=== PATIENT | male | born 2000 | race Caucasian/White ===

== ENCOUNTER 2021-05-29 14:06 | Emergency (ER) | payer BC ==
[2021-05-29 15:37] VITALS: BP 137/77; PULSE 86; RESP 18; TEMP 99.1
[2021-05-29] MEDS ORDERED: DIPH,PERTUS(ACELL)TETVAC-LF 0.5 ML VIAL IM ONE (16:19)
[2021-05-29] MEDS ORDERED: PROPARACAINE 0.5% OPHTH DROPS 15 ML BTL RIGHT EYE STA (16:19)
[2021-05-29] MEDS ORDERED: PROPARACAINE 0.5% OPHTH DROPS 15 ML BTL LEFT EYE STA (16:19)
[2021-05-29] MEDS ORDERED: FLUORESCEIN STRIPS 1 MG STRIP BOTH EYES ONE (16:19)
--- NOTE | 2021-05-29 16:23 | ED ---
General Adult HPI - General Chief complaint: Eye Problems Stated complaint: Foreign object in eyes Time Seen by Provider: 05/29/21 16:14 Source: patient, RN notes reviewed Mode of arrival: ambulatory Limitations: no limitations - History of Present Illness Initial comments: This is a well-appearing 21-year-old male, alert and oriented 4, presents to [facility] emergency room with complaints of foreign body sensation to both eyes. 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 He states this is happened before but it has resolved this time is not resolved which is why he came to the emergency room. He also states he has a stye on his left upper eyelid that has been irritating him. Patient is a daily smoker. He has a history of asthma. -: days(s) (1) Location: eyes Severity scale (1-10): 2 Quality: constant Consistency: constant Improves with: none Worsens with: none Associated Symptoms: denies other symptoms Treatments Prior to Arrival: none - Related Data Allergies Allergy/AdvReac Type Severity Reaction Status Date / Time No Known Allergies Allergy Verified 05/29/21 15:37 Review of Systems ROS Statement: Those systems with pertinent positive or pertinent negative responses have been documented in the HPI. ROS Other: All systems not noted in ROS Statement are negative. Past Medical History Past Medical History: Asthma History of Any Multi-Drug Resistant Organisms: None Reported Past Surgical History: No Surgical Hx Reported Past Psychological History: No Psychological Hx Reported Smoking Status: Current every day smoker Past Alcohol Use History: Occasional Past Drug Use History: Marijuana General Exam Limitations: no limitations General appearance: alert, in no apparent distress Head exam: Present: atraumatic, normocephalic, normal inspection Eye exam: Present: PERRL, EOMI, conjunctival injection, other (Internal styes to bilateral eye, upper lids). Absent: periorbital swelling, periorbital tenderness Pupils: Present: normal accommodation Expanded Eyelids: Normal Inspection: Bilateral, Stye: Bilateral (internal inner canthus) Pupils: Regular, Round: Bilateral, Reactive: Bilateral Sclera/Conjunctival: Injection: Bilateral ENT exam: Present: normal exam, normal oropharynx, mucous membranes moist Neck exam: Present: normal inspection, full ROM. Absent: tenderness, meningismus, lymphadenopathy Respiratory exam: Present: normal lung sounds bilaterally. Absent: respiratory distress, wheezes, rales, rhonchi, stridor Cardiovascular Exam: Present: regular rate, normal rhythm, normal heart sounds. Absent: systolic murmur, diastolic murmur, rubs, gallop, clicks Neurological exam: Present: alert, oriented X3 Psychiatric exam: Present: normal affect, normal mood Skin exam: Present: warm, dry, intact, normal color. Absent: rash, cyanosis, diaphoretic Course Vital Signs 05/29/21 15:23 Temperature 99.1 F Pulse Rate 86 Respiratory 18 Rate Blood Pressure 137/77 O2 Sat by Pulse 97 Oximetry Medical Decision Making - Medical Decision Making Patient was given proparacaine bilaterally and under fluorescein and Harvey lamp there is no evidence of corneal abrasion or foreign body. Patient denies any blurred vision or sensitivity to light or vision loss. Ocular eye movements are intact and has no pain with eye movement. There is no matting of the eyelids or discharge. There was evidence of internal styes of both upper lids. Patient was directed to use warm moist compresses and follow-up with ophthalmology. Case discussed with Dr. Escobar Disposition Clinical Impression: Sty, internal Disposition: HOME SELF-CARE Condition: Good Instructions (If sedation given, give patient instructions): Cristian (ED) Additional Instructions: Use warm moist compresses to the eyes twice a day. 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 Follow-up with ophthalmology. Is patient prescribed a controlled substance at d/c from ED?: No Referrals: Humberto Chase MD [Primary Care Provider] - 1-2 days Roosevelt Matias MD [STAFF PHYSICIAN] - 1-2 days
== END 2021-05-29 17:31 | disposition home or self-care (01) ==
LOC: EC 14:06
DX: H00.014 Hordeolum externum left upper eyelid (principal); H00.011 Hordeolum externum right upper eyelid
CPT/HCPCS: 90471; 90715; 99283